=== PATIENT | female | born 1935 | race Caucasian/White ===

== ENCOUNTER 2018-01-30 17:11 | Observation (INO) ==
[2018-01-30 19:58] LABS: Basophils % 0.4 %; Eosinophils # 0.1 K/mcL (0.0-0.6); Eosinophils % 1.1 %; Hematocrit 44.9 % (35.3-44.9); Hemoglobin 14.8 g/dL (11.5-15.4); Immature Granulocytes % 0.5 % (0-4); Lymphocytes # 1.7 K/mcL (0.6-4.6); Mean Corpuscular Hemoglobin 33.5 pg (28.0-33.3); Mean Corpuscular Volume 101.6 fL (83.0-100.0); Mean Platelet Volume 9.2 fL (9.4-12.4); Monocytes # 0.6 K/mcL (0.0-1.3); Monocytes % 6.4 %; Neutrophils # 6.1 K/mcL (1.6-8.9); Platelet Count 214 K/mcL (140-400); Red Blood Count 4.42 M/mcL (3.82-4.97); Red Cell Distribution Width 15.9 % (11.5-14.5); Segmented Neutrophils % 71.6 %
[2018-01-30 20:14] LABS: Bilirubin,Urine Negative (Negative); Blood,Urine Trace-intact (Negative); Clarity,Urine Slightly Cloudy (Clear); Glucose,Urine (UA) Normal (Normal); Ketones,Urine Negative (Negative); Leukocyte Esterase,Urine Trace (Negative); Nitrite,Urine Negative (Negative); Protein,Urine Negative (Neg-Trace); Urobilinogen,Urine Normal (Normal)
[2018-01-30 20:14] LABS: Alanine Aminotransferase 12 Units/L (7-52); Albumin 4.4 g/dL (3.5-5.7); Albumin/Globulin Ratio 1.5 (1.1-2.2); Alkaline Phosphatase 97 Units/L (34-104); Aspartate Amino Transferase 18 Units/L (13-39); BUN/Creatinine Ratio 30 (6-26); Bilirubin,Total 1.1 mg/dL (0.3-1.0); Blood Urea Nitrogen 21 mg/dL (8-23); Calcium 9.8 mg/dL (8.6-10.3); Carbon Dioxide 30 mEq/L (23-29); Chloride 96 mEq/L (98-107); Globulin 2.9 g/dL (2.4-3.5); Glucose 86 mg/dL (70-105); Magnesium 2.3 mg/dL (1.6-2.6); Osmolality,Calculated 278 (280-300); Potassium 4.3 mEq/L (3.5-5.1); Sodium 133 mEq/L (136-145); Total Protein 7.3 g/dL (6.4-8.9); eGFR For Non-African Americans > 60 (> 60)
[2018-01-30 20:15] LABS: Color,Urine Yellow (Yellow)
[2018-01-30 20:17] LABS: RBC,Urine 0-3 per hpf (0-3); Squamous Epithelial Cell,Urine Few per lpf (None-Few)
[2018-01-30 20:18] LABS: Bacteria,Urine Few per hpf (None-Few); Hyaline Casts,Urine Few per lpf (None-Few)
[2018-01-30 20:28] LABS: Thyroid Stimulating Hormone 2.082 mcIU/mL (0.340-5.600)
[2018-01-30] MEDS ORDERED: 0.9 % Sodium Chloride 1,000 ML IVC SCH (21:00)
[2018-01-30] MEDS ORDERED: Naloxone 0.4 MG/ML INJ IVP PRN (21:37)
[2018-01-30] MEDS ORDERED: Ketorolac 30 MG/ML VIAL IVP ONE (22:15)
[2018-01-30] MEDS: 0.9 % Sodium Chloride 1,000 ML IVC SCH (22:30)
--- NOTE | 2018-01-30 23:20 | Emergency Department Note ---
Disposition Clinical Impression: Clavicle fracture Disposition: Admitted As Inpatient Condition: Fair Time of Disposition: 20:00 Fall HPI - General Chief Complaint: ED Fall Stated Complaint: cp, R shoulder pain. R leg pain, vaginal pain Time Seen by Provider: 01/30/18 18:10 Source: patient, family Limitations: no limitations Nursing Notes Reviewed: Yes Vital Signs Reviewed: Yes - History of Present Illness HPI Narrative: About 12 hours ago this morning Ms. sarah fell on her right side and is complaining of some right shoulder and hip pain. For the fall she was feeling somewhat dizzy as she was cleaning up after a pet. She denies any chest pain abdomen pain or palpitations before or during or after the fall. She could walk a little bit after the fall and her son assisted her very quickly after she f ell. She lives at his house. He put her on the couch and she had some difficulty with her right hip when she tried to get up again several hours later. She denies any numbness tingling or color change into her hand or fingers on the right. She does not believe she hit her head. She has full rec ollection of the event. Her son mentions that she is been feeling somewhat fatigued and at times confused recently and wonders if perhaps she has a urinary tract infection. No new medications. She is on methotrexate and full of gas at and omeprazole. They get 2 Percocet prescriptions per year but she has not taken this in some time. He is unsure of her other medications but does not believe she is on any blood thinners. She needs a walker to assist her ambulation at home. Pt Subjective Complaint: fall - Related Data Home Medications Medication Instructions Recorded Confirmed Unable To Obtain [Unable to Obtain] 09/26/16 01/30/18 Allergies Allergy/AdvReac Type Severity Reaction Status Date / Time latex Allergy Rash Verified 09/26/16 20:29 Penicillins Allergy See Verified 09/26/16 20:29 Comments Sulfa (Sulfonamide Allergy See Verified 09/26/16 20:29 Antibiotics) Comments Eyes: Denies: vision change ENT ED: Denies: dysphagia Cardiovascular: Denies: chest pain, palpitations Respiratory: Denies: dyspnea Gastrointestinal: Denies: nausea, vomiting, diarrhea Musculoskeletal: Reports: arthralgia Hematological/Lymphatic: Denies: easy bleeding, easy bruising Fall PMH - Past Medical History Medical history: Reports: GERD, hypertension, osteoporosis, RA Psychiatric history: Reports: no psych history JAPANESE PROFESSOR history: Reports: no JAPANESE PROFESSOR history - Social History Smoking Status: Never smoker Alcohol use: Reports: none Drug use: Reports: none Physical Exam - General Limitations: no limitations General appearance: alert, in no apparent distress - Head Head exam: atraumatic, normocephalic, normal inspection - Eye Eye exam: Present: normal appearance, PERRL, EOMI. Absent: periorbital swelling, periorbital tenderness - ENT ENT exam: other (Negative raccoon eyes negative Rodriguez sign) - Neck Neck exam: Present: normal inspection. Absent: tenderness - Chest Chest inspection: Present: normal inspection, symmetric chest wall rise - Respiratory Respiratory exam: Present: normal lung sounds bilaterally. Absent: respiratory distress, wheezes, stridor - Cardiovascular Cardiovascular exam: Present: regular rate, normal rhythm, normal heart sounds - Abdominal Exam Abdominal exam: Present: soft, Non-Tender - Extremities Exam Extremities exam: Present: normal inspection, other (Leg length equal). Absent: pedal edema - Expanded Upper Extremity Exam Shoulder exam: Present: tenderness, ecchymosis, tenderness over AC joint. Absent: full ROM Arm exam: Absent: tenderness Elbow exam: Present: normal inspection, full ROM. Absent: tenderness Hand exam: Present: normal inspection, other (Radial pulse +2 right. No sensory deficit right hand. Fingers are warm.) - Expanded Lower Extremity Exam Hip/Pelvis exam: Present: normal inspection, pelvis stable. Absent: tenderness, swelling, ecchymosis, deformity, crepitus, dislocation, erythema, shortening Upper leg exam: Present: normal inspection. Absent: tenderness - Neurological Exam Neurological exam: Present: alert - Psychiatric Psychiatric exam: Present: normal affect, normal mood - Skin Skin exam: Present: warm, dry Course Vital Signs Temperature 97.9 F 01/30/18 17:40 Pulse Rate 75 01/30/18 17:40 Respiratory Rate 16 01/30/18 17:40 Blood Pressure 167/73 01/30/18 17:40 O2 Sat by Pulse Oximetry 94 01/30/18 17:40 Temperature 97.4 F L 01/31/18 04:00 Pulse Rate 80 01/31/18 04:00 Respiratory Rate 17 01/31/18 04:00 Blood Pressure 133/70 01/31/18 04:00 O2 Sat by Pulse Oximetry 95 01/31/18 04:00 Oxygen Delivery Oxygen Delivery Room Air Fall - [facility] Narrative Medical decision making narrative: Status post fall. Clavicle fracture. She is dependent on a walker for ambulation. Obviously she will not be able to do this for the immediate future placing her at greater risk for further falls. Also she is nonambulatory because of hip pain even though there is no radiographic evidence for fracture or dislocation. She lives at home with her son who works full-time. It would be prudent to observe her here in the hospital to assess her mobility needs and perhaps even to consider increasing her level of care for the short-term. I spoke with the covering hospitalist and presented the case. He accepted admission. She appears well and was transferred to the floor in good condition. - Lab Data Lab results reviewed: Yes I reviewed the patient's lab results. Result diagrams: 01/30/18 19:50 01/31/18 05:45 Lab Results 01/30/18 01/30/18 01/30/18 Range/Units 19:50 19:50 19:50 WBC 8.5 (4.3-11.1) K/mcL RBC 4.42 (3.82-4.97) M/mcL Hgb 14.8 (11.5-15.4) g/dL Hct 44.9 (35.3-44.9) % MCV 101.6 H (83.0-100.0) fL MCH 33.5 H (28.0-33.3) pg MCHC 33.0 (31.6-35.5) g/dL RDW 15.9 H (11.5-14.5) % Plt Count 214 (140-400) K/mcL MPV 9.2 L (9.4-12.4) fL Immature Gran % 0.5 (0-4) % Seg Neutrophils % 71.6 % Lymphocytes % 20.0 % Monocytes % 6.4 % Eosinophils % 1.1 % Basophils % 0.4 % Neutrophils # 6.1 (1.6-8.9) K/mcL Lymphocytes # 1.7 (0.6-4.6) K/mcL Monocytes # 0.6 (0.0-1.3) K/mcL Eosinophils # 0.1 (0.0-0.6) K/mcL Basophils # 0.0 (0.0-0.2) K/mcL Sodium 133 L (136-145) mEq/L Potassium 4.3 (3.5-5.1) mEq/L Chloride 96 L (98-107) mEq/L Carbon Dioxide 30 H (23-29) mEq/L BUN 21 (8-23) mg/dL Creatinine 0.70 (0.60-1.20) mg/dL Est GFR ( Amer) > 60 (> 60) Est GFR (Non-Af Amer) > 60 (> 60) BUN/Creatinine Ratio 30 H (6-26) Glucose 86 (70-105) mg/dL Calculated Osmolality 278 L (280-300) Calcium 9.8 (8.6-10.3) mg/dL Magnesium 2.3 (1.6-2.6) mg/dL Total Bilirubin 1.1 H (0.3-1.0) mg/dL AST 18 (13-39) Units/L ALT 12 (7-52) Units/L Alkaline Phosphatase 97 (34-104) Units/L Serum Total Protein 7.3 (6.4-8.9) g/dL Albumin 4.4 (3.5-5.7) g/dL Globulin 2.9 (2.4-3.5) g/dL Albumin/Globulin Ratio 1.5 (1.1-2.2) TSH 2.082 (0.340-5.600) mcIU/mL Urine Color (Yellow) Urine Clarity (Clear) Urine pH (5.0-8.0) pH Units Ur Specific [place] (1.010-1.025) Urine Protein (Neg-Trace) mg/dL Urine Glucose (UA) (Normal) mg/dL Urine Ketones (Negative) mg/dL Urine Blood (Negative) Urine Nitrite (Negative) Urine Bilirubin (Negative) Urine Urobilinogen (Normal) mg/dL Ur Leukocyte Esterase (Negative) Urine Microscopic RBC (0-3) per hpf Urine Microscopic WBC (0-3) per hpf Ur Squamous Epith Cells (None-Few) per lpf Urine Bacteria (None-Few) per hpf Hyaline Casts (None-Few) per lpf Ur Culture Indicated? (NO) 01/30/18 Range/Units 20:09 WBC (4.3-11.1) K/mcL RBC (3.82-4.97) M/mcL Hgb (11.5-15.4) g/dL Hct (35.3-44.9) % MCV (83.0-100.0) fL MCH (28.0-33.3) pg MCHC (31.6-35.5) g/dL RDW (11.5-14.5) % Plt Count (140-400) K/mcL MPV (9.4-12.4) fL Immature Gran % (0-4) % Seg Neutrophils % % Lymphocytes % % Monocytes % % Eosinophils % % Basophils % % Neutrophils # (1.6-8.9) K/mcL Lymphocytes # (0.6-4.6) K/mcL Monocytes # (0.0-1.3) K/mcL Eosinophils # (0.0-0.6) K/mcL Basophils # (0.0-0.2) K/mcL Sodium (136-145) mEq/L Potassium (3.5-5.1) mEq/L Chloride (98-107) mEq/L Carbon Dioxide (23-29) mEq/L BUN (8-23) mg/dL Creatinine (0.60-1.20) mg/dL Est GFR ( Amer) (> 60) Est GFR (Non-Af Amer) (> 60) BUN/Creatinine Ratio (6-26) Glucose (70-105) mg/dL Calculated Osmolality (280-300) Calcium (8.6-10.3) mg/dL Magnesium (1.6-2.6) mg/dL Total Bilirubin (0.3-1.0) mg/dL AST (13-39) Units/L ALT (7-52) Units/L Alkaline Phosphatase (34-104) Units/L Serum Total Protein (6.4-8.9) g/dL Albumin (3.5-5.7) g/dL Globulin (2.4-3.5) g/dL Albumin/Globulin Ratio (1.1-2.2) TSH (0.340-5.600) mcIU/mL Urine Color Yellow (Yellow) Urine Clarity Slightly Cloudy A (Clear) Urine pH 5.0 (5.0-8.0) pH Units Ur Specific [place] 1.010 (1.010-1.025) Urine Protein Negative (Neg-Trace) mg/dL Urine Glucose (UA) Normal (Normal) mg/dL Urine Ketones Negative (Negative) mg/dL Urine Blood Trace-intact H (Negative) Urine Nitrite Negative (Negative) Urine Bilirubin Negative (Negative) Urine Urobilinogen Normal (Normal) mg/dL Ur Leukocyte Esterase Trace H (Negative) Urine Microscopic RBC 0-3 (0-3) per hpf Urine Microscopic WBC 3-5 H (0-3) per hpf Ur Squamous Epith Cells Few (None-Few) per lpf Urine Bacteria Few (None-Few) per hpf Hyaline Casts Few (None-Few) per lpf Ur Culture Indicated? YES A (NO) - Radiology Data Radiology results reviewed: Yes I reviewed the patient's radiology results. - EKG Data EKG attestation: Yes I reviewed and interpreted this EKG. EKG results narrative: EKG as interpreted by me normal sinus rhythm 63 bpm. There is some evidence in V5 V6 for left ventricular hypertrophy. Some T-wave flattening versus mild inversion in aVL otherwise no T-wave abnormalities. Normal axis. No ST elevations or depressions. No comparison available.
[2018-01-31] MEDS: 0.9 % Sodium Chloride 1,000 ML IVC SCH ×4 (01:46→22:39)
[2018-01-31] MEDS: Ketorolac 30 MG/ML VIAL IVP PRN ×2 (03:51→15:02)
[2018-01-31] MEDS: *HR* Enoxaparin 40 MG/0.4 ML SYRINGE SQ SCH (05:57)
[2018-01-31 06:13] LABS: BUN/Creatinine Ratio 28 (6-26); Blood Urea Nitrogen 20 mg/dL (8-23); Calcium 8.4 mg/dL (8.6-10.3); Carbon Dioxide 26 mEq/L (23-29); Chloride 104 mEq/L (98-107); Glucose 100 mg/dL (70-105); Osmolality,Calculated 283 (280-300); Potassium 3.8 mEq/L (3.5-5.1); Sodium 135 mEq/L (136-145); eGFR For Non-African Americans > 60 (> 60)
[2018-01-31] MEDS: Folic Acid 1 MG TABLET PO SCH (10:10)
--- NOTE | 2018-01-31 11:35 | Internal Med History&Physical ---
Addendum entered and electronically signed by Alex Candelario MD 01/31/18 15:36: I have personally performed a face to face evaluation on this patient. I have r eviewed and agree with the care plan. History and Exam by me shows: Patient is a frail, elderly patient with rheumatoid arthritis. She was in her usual state of health until last night when she was trying to clean up a urine puddle caused by her dog. She became presyncopal and then fell. She awoke without hitting her head but with severe right shoulder pain. She was otherwise without injury, no nodes time. She was brought to the emergency room and she was found to have right clavicle fracture. She had x-ray of her spine and pelvis as well as hip. This showed no problem with pelvis, hip, etc. She continues to have pelvic pain, today. I talked at length with the patient, son, and son's girlfriend. She does not want to go to the ECF but I was concerned that she needs to have 24 7 follow-up at home as she is not stable, can no longer use her wheeled walker because of her clavicle fracture, and may need rehabilitation for an extended period of time. H&P were reviewed with patient and her son. They are detailed in the H&P below. Son will try to encourage patient to go to the ECF for a month but she does not want to. I expressed my concern about her safety and told her that it was her right, I could not force her to go to an ECF. Social service states that she would require authorization for ECF and the need to know as soon as possible. She takes 10 fracture fixated pills, weekly, for rheumatoid arthritis. She is noted to have feet that turned almost black. However, she has tests which have been obtained by her primary doctor that show only a minor venous problem in that her circulation is otherwise okay. She has a couple of years of intermittent explosive diarrhea, at the end of meals. This is been evaluated by her family doctor and is she is to have an e valuation which is further but has not yet done this. (I presume this is a gastroenterological evaluation.) She has had no gallstones that she knows of or cholecystectomy. She has had a kidney stone. She frequently has abdominal pain at the end of her meals or with the explosive diarrhea. She has recently been incontinent of diarrhea on multiple occasions. She denies melena or hematochezia. Patient has no complaint of chest discomfort, dyspnea, orthopnea, breathing problems, palpitations, nausea or vomiting, constipation or diarrhea, other changes in bowel habits, heartburn, difficulty with urination, kidney problems or kidney stones, fevers chills or sweats, rash or itching, seizures, headache or lightheadedness, heat or cold intolerance, blood problems or anemia, or other new complaints, except as mentioned above. Review of systems is otherwise negative. Examination: (Except as mentioned above): General: In no apparent distress, alert and oriented 3. Head: Atraumatic and normocephalic. Eyes: Extraocular muscles are intact, pupils equal round and reactive to light and accommodation. Sclerae anicteric. Ears: External ears are normal to inspection and hearing is grossly normal. Nose: Patent without lesion noted. Mouth: No intraoral lesions seen. Dentition is unremarkable. Neck: Supple with trachea midline. There is no thyromegaly or adenopathy and carotids are 2+ without bruit heard. Respiratory: No use of accessory muscles. Lungs are clear throughout. Normal airflow. Cardiovascular: Regular rate and rhythm without murmur appreciated. Abdomen: Bowel sounds are normal. No hepatosplenomegaly masses or tenderness. Obese and therefore difficult to palpate deeply. This is true although she has a small, frail woman. Extremities: No cyanosis clubbing or edema. She has mild to moderate rheumatoid arthritis changes. No crippling deformities. Neurological: A and O 3. Cranial nerves II through XII are intact. No focal deficits and no abnormal movements or postures. Skin: Warm and non-diaphoretic with no lesions noted. Breasts, pelvic and rectal: Not examined. Original Note: Date of Encounter: 01/31/18 Time of Encounter: 11:32 Assessment and Plan (1) Fall Current visit: Yes Status: Acute Sustained a right clavicle fracture. PT and OT to eval and treat for generalize d weakness. Qualifiers: Encounter type: sequela Qualified Code(s): W19.XXXS - Unspecified fall, sequela (2) Clavicle fracture Current visit: Yes Status: Acute Continue sling. Follow up with ortho. Monitor pain. Controlled at this time. Qualifiers: Encounter type: sequela Clavicle location: lateral end Fracture type: closed Fracture alignment: nondisplaced Laterality: right Qualified Code(s): S42.034S - Nondisplaced fracture of lateral end of right clavicle, sequela Internal Medicine - H&P: HPI Admitted From: Emergency Dept Plans for Post Hospital Care: Home History of present illness: Ms. Ace is a 82 year old female presented to the emergency room yesterday after sustaining a fall yesterday morning at home. Patient fell on right side and sustained a right distal clavicle fracture. Patient is currently in a sling and denies pain at this time. Lives at home with son. Son states she has been having slight confusion and more fatigue over the past week or so. Urinalysis is pending. Will discontinue Khan catheter today. Did have large incontinent episode of diarrhea today. Patient denies fever, chills, nausea or vomiting. Denies shortness of breath or chest pain. Past Med Surg Social Fam HX - Past Medical History Medical history: GERD, hypertension, osteoporosis, RA Psychiatric history: no psych history - Past Surgical History Additional surgical history: Right shoulder torn rotator cuff,left knee,right hip - Social History Smoking Status: Never smoker Smokeless Tobacco Status: No Alcohol use: none Drug use: none Internal Medicine - H&P: Meds Unable To Obtain [Unable to Obtain] 09/26/16 [History] Allergy/AdvReac Type Severity Reaction Status Date / Time latex Allergy Rash Verified 09/26/16 20:29 Penicillins Allergy See Verified 09/26/16 20:29 Comments Sulfa (Sulfonamide Allergy See Verified 09/26/16 20:29 Antibiotics) Comments All Systems PM: A 10-system review of systems was performed and is negative for pertinent findings except as documented above in the HPI. - Constitutional Constitutional: no chills, no fever(s), no night sweats - EENT Eyes: no change in vision, no discharge, no pain, no photophobia Ears: no ear discharge, no ear pain, no tinnitus Nose, mouth and throat: no dysphagia, no nasal discharge, no neck pain, no sore throat - Cardiovascular Cardiovascular ROS IM: no chest pain, no diaphoresis, no dyspnea, no light headedness, no palpitations, no syncope - Respiratory Respiratory: no cough, no dyspnea, no wheezing, no excessive phlegm production - Gastrointestinal Gastrointestinal: no abdominal pain, no diarrhea, no hematemesis, no h ematochezia, no melena, no nausea, no vomiting - Genitourinary Genitourinary: no change in urinary stream, no dysuria, no flank pain, no hematuria - Musculoskeletal Musculoskeletal ROS IM: no numbness, no tingling - Integumentary Integumentary IM: no rash, no unusual bruising - Neurological Neurological ROS: no confusion, no convulsions, no focal weakness, no numbness, no tingling, no tremor(s) - Hematologic/Lymphatic Hematologic/Lymphatic: no easy bruising - Constitutional Vitals: Temp Pulse Resp BP Pulse Ox 97.7 F 69 16 106/66 95 01/31/18 06:30 01/31/18 06:30 01/31/18 06:30 01/31/18 06:30 01/31/18 06:30 General appearance: Present: A&O X 3, pleasant, no acute distress, answers questions appropriately - Head Head exam: Present: atraumatic, normocephalic - Eye Eye exam: Present: PERRL, conjuntiva pink, sclera anicteric Pupils: Present: PERRL - Neck Neck exam general surgery: Present: supple, trachea midline. Absent: lymphadenopathy - Respiratory Respiratory exam: Present: CTAB. Absent: accessory muscle use, rales, rhonchi, wheezes - Cardiovascular Cardiovascular exam: Present: RRR, +S1, +S2. Absent: diastolic murmur, gallop, rubs, systolic murmur - GI/Abdominal GI/Abdominal exam: Present: normal bowel sounds, soft, no peritoneal signs. Absent: distended, tenderness - Extremities Exam Extremities exam: Present: warm, radial pulses palpable and symmetrical. Absent: calf tenderness, cyanotic, pedal edema Additional comments: Right arm in sling - Neurological Exam Neurological exam: Present: CN II-XII intact, oriented X3, no focal deficits. Absent: pronater drift, facial droop, speech deficit - Skin Skin exam: Present: dry, intact Internal Med - H&P Results - Labs CBC & Chem 7: 01/30/18 19:50 01/31/18 05:45 Labs: Short CBC 01/30/18 Range/Units 19:50 WBC 8.5 (4.3-11.1) K/mcL Hgb 14.8 (11.5-15.4) g/dL Hct 44.9 (35.3-44.9) % Plt Count 214 (140-400) K/mcL Neutrophils # 6.1 (1.6-8.9) K/mcL BMP 01/30/18 01/31/18 19:50 05:45 Sodium 133 L 135 L Potassium 4.3 3.8 Chloride 96 L 104 Carbon Dioxide 30 H 26 BUN 21 20 Creatinine 0.70 0.72 Glucose 86 100 Calcium 9.8 8.4 L Liver Function 01/30/18 Range/Units 19:50 Total Bilirubin 1.1 H (0.3-1.0) mg/dL AST 18 (13-39) Units/L ALT 12 (7-52) Units/L Alkaline Phosphatase 97 (34-104) Units/L Albumin 4.4 (3.5-5.7) g/dL Urine 01/30/18 Range/Units 20:09 Urine Color Yellow (Yellow) Urine Clarity Slightly Cloudy A (Clear) Urine pH 5.0 (5.0-8.0) pH Units Ur Specific [place] 1.010 (1.010-1.025) Urine Protein Negative (Neg-Trace) mg/dL Urine Glucose (UA) Normal (Normal) mg/dL - Impressions ITS Impressions Hip X-Ray 01/30/18 17:53 IMPRESSION: Right hip: Status post right hip hemiarthroplasty. No acute abnormality detected. Right shoulder: Comminuted, displaced distal clavicle fracture. Nodular opacity within the right lung, incompletely evaluated. Further evaluation with a dedicated PA and lateral chest radiograph is recommended. Chest CT may ultimately be necessary. D/ / Cristopher Edward MD / Cristopher Edward MD Interpreting Provider: Cristopher Edward MD Shoulder X-Ray 01/30/18 17:53 IMPRESSION: Right hip: Status post right hip hemiarthroplasty. No acute abnormality detected. Right shoulder: Comminuted, displaced distal clavicle fracture. Nodular opacity within the right lung, incompletely evaluated. Further evaluation with a dedicated PA and lateral chest radiograph is recommended. Chest CT may ultimately be necessary. D/ / Cristopher Edward MD / Cristopher Edward MD Interpreting Provider: Cristopher Edward MD Head CT 01/30/18 19:17 IMPRESSION: 1. No acute intracranial abnormality. 2. 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 3. If there is clinical concern for acute ischemia, MRI would be the more sensitive modality. D/ / Indio Tyler / Indio Tyler Interpreting Provider: Indio Tyler Chest X-Ray 01/30/18 19:19 IMPRESSION: Redemonstration of the distal right clavicle fracture. Otherwise negative chest radiograph. D/ / Cristopher Edward MD / Cristopher dEward MD Interpreting Provider: Cristopher Edward MD
--- NOTE | 2018-01-31 21:12 | Electrocardiograph Report ---
[place] [id number] Test Date: 2018-01-30 Pat Name: Mindy Ace Department: 2000 Room: 117 Gender: F Mechanical Field Engineer: : [id number] Requested By: Jah Garcia Order Number: [id number] Reading MD: Carlos Taylor Measurements Intervals [place] Rate: 63 P: 76 AL: 166 QRS: 15 QRSD: 85 T: 65 QT: 404 QTc: 411 Interpretive Statements SINUS RHYTHM LEFT VENTRICULAR HYPERTROPHY AND ST-T CHANGE Electronically Signed On 01-31-2018 21:11:06 EST by Carlos Taylor
[2018-01-31] MEDS ORDERED: *HR* Enoxaparin 40 MG/0.4 ML SYRINGE SQ SCH (21:35)
[2018-02-01] MEDS: *HR* Enoxaparin 40 MG/0.4 ML SYRINGE SQ SCH (06:13)
[2018-02-01] MEDS: Folic Acid 1 MG TABLET PO SCH (08:51)
[2018-02-01] MEDS: 0.9 % Sodium Chloride 1,000 ML IVC SCH (09:08)
[2018-02-01] MEDS: *HR* OxyCODONE/APAP 5/325 TABLET PO PRN ×3 (09:45→22:53)
--- NOTE | 2018-02-01 10:11 | Internal Med Progress Note ---
Addendum entered and electronically signed by Alex Candelario MD 02/01/18 10:28: I have personally performed a face to face evaluation on this patient. I have r eviewed and agree with the care plan. History and Exam by me shows: As noted, spoke at length with patient and son yesterday about risks and 24-hour care, at home. Son agrees that she should go to [facility] but patient is telling me she is waiting to go home, this morning. enrollment services vice president investigating insurance coverage of [facility]. Patient has minimal soreness in her right shoulder but is otherwise doing well. No bowel or bladder problems. Discussed care with other providers and/or nursing. Patient has no complaint of chest discomfort, dyspnea, orthopnea, palpitations, nausea or vomiting, constipation or diarrhea, other changes in bowel habits, difficulty with urination, rash or itching, or other new complaints, except as mentioned above. Review of systems is otherwise negative. Examination: (Except as mentioned above): General: In no apparent distress. Alert and oriented 3. Nondiaphoretic. Wearing sling and swath, as before. Head: Atraumatic and normocephalic. Respiratory: No use of accessory muscles. Lungs are clear throughout. Normal airflow. Cardiovascular: Regular rate and rhythm without murmur appreciated. Abdomen: Bowel sounds are normal. No hepatosplenomegaly mass or tenderness appreciated. Obese and therefore difficult to palpate deeply. I actually think that she is not very obese but her kyphosis makes her abdomen be conformed this way. Patient is examined upright in chair and this also limits exam. Extremities: No cyanosis clubbing or edema. Skin: Warm and non-diaphoretic with no new lesions noted We have asked nursing to evaluate for orthopedic referral and outpatient management for possible clavicle brace/strap but because of her rather pron ounced kyphosis, this may not be appropriate.. Original Note: Date of Encounter: 02/01/18 Time of Encounter: 10:09 - Assessment and plan (1) Fall Current Visit: Yes Status: Acute Assessment and plan: assist with ADL's. Qualifiers: Encounter type: sequela Qualified Code(s): W19.XXXS - Unspecified fall, sequela (2) Clavicle fracture Current Visit: Yes Status: Acute Assessment and plan: pain controlled with current medicaiton. continue right arm in sling. Qualifiers: Encounter type: sequela Clavicle location: lateral end Fracture type: closed Fracture alignment: nondisplaced Laterality: right Qualified Code(s): S42.034S - Nondisplaced fracture of lateral end of right clavicle, sequela - Time Spent With Patient less than 15 minutes - Subjective Interval history: currently sitting up in chair. states not sleeping well, this is not new and has been going on prior to admit. states pain in left arm and shoulder area is controlled. currently wearing sling. discussed ECF placement. denies fever, chills, NVD today. maintaining appetite and hydration. - Constitutional Vitals: Temp Pulse Resp BP Pulse Ox 97.7 F 72 18 137/75 96 02/01/18 04:43 02/01/18 04:43 02/01/18 04:43 02/01/18 04:43 02/01/18 04:43 General appearance: Present: A&O X 3, pleasant, no acute distress, answers questions appropriately - Head Head exam: Present: atraumatic, normocephalic - Eye Eye exam: Present: PERRL, conjuntiva pink, sclera anicteric Pupils: Present: PERRL - Neck Neck exam general surgery: Present: supple, trachea midline. Absent: lymphadenopathy - Respiratory Respiratory exam: Present: CTAB. Absent: accessory muscle use, rales, rhonchi, wheezes - Cardiovascular Cardiovascular exam: Present: RRR, +S1, +S2. Absent: diastolic murmur, gallop, rubs, systolic murmur - GI/Abdominal GI/Abdominal exam: Present: normal bowel sounds, soft, no peritoneal signs. Absent: distended, tenderness - Extremities Exam Extremities exam: Present: warm, radial pulses palpable and symmetrical. Absent: calf tenderness, cyanotic, pedal edema Additional comments: right arm in sling. - Neurological Exam Neurological exam: Present: CN II-XII intact, oriented X3, no focal deficits. Absent: pronater drift, facial droop, speech deficit - Skin Skin exam: Present: dry, intact Internal Medicine: Result - Labs CBC & Chem 7: 01/30/18 19:50 01/31/18 05:45 Consult Discharge Plan - Plan Referrals: Piero Daley DO [Primary Care Provider] -
[2018-02-02] MEDS: *HR* Enoxaparin 40 MG/0.4 ML SYRINGE SQ SCH (04:07)
[2018-02-02] MEDS: Folic Acid 1 MG TABLET PO SCH (08:38)
[2018-02-02] MEDS: *HR* OxyCODONE/APAP 5/325 TABLET PO PRN (08:38)
--- NOTE | 2018-02-02 11:04 | Discharge Summary ---
Addendum entered and electronically signed by Alex Candelario MD 02/03/18 11:46: I have personally performed a face to face evaluation on this patient. I have r eviewed and agree with the care plan. History and Exam by me shows: The patient was evaluated by me yesterday but the note was not complete. This documentation is being completed today for that reason. Patient was here for several days because of disposition decisions by the family, especially the son. The recommendation was for 24 7 care (which his son felt he was unable to provide) or ECF placement. For insurance and other reasons, this was not to be done, per son. The patient has had incontinence of bowel and as noted, she has had this problem for anywhere from 6 or 7 months to as long as 2 years and it has been evaluated by her family physician. Because she was to be here for only a day, no workup was undertaken here. Also, we do not have a classifier or evaluation that is possible. I am told by nursing that the patient was stable and not requiring much pain medicine. However, the son was upset that the patient was to be seen here by an orthopedist (which we do not have one staff) and was under the impression that this would be arranged while the patient was here. I am told variably that the staff put him at understanding and agrees, before her discharge. The patient stated that her shoulder pain was "sore," but easily tolerable. She was moving bowels and bladder per her baseline and well. Discussed care with other providers and/or nursing. Patient has no complaint of chest discomfort, dyspnea, orthopnea, palpitations, nausea or vomiting, constipation or diarrhea, other changes in bowel habits, difficulty with urination, rash or itching, or other new complaints, except as mentioned above. Review of systems is otherwise negative. Examination: (Except as mentioned above): General: In no apparent distress. Alert and oriented 3. Nondiaphoretic. She is wearing a right arm sling, as before. Head: Atraumatic and normocephalic. Respiratory: No use of accessory muscles. Lungs are clear throughout. Normal airflow. Cardiovascular: Regular rate and rhythm without murmur appreciated. Abdomen: Bowel sounds are normal. No hepatosplenomegaly mass or tenderness appreciated. Obese and therefore difficult to palpate deeply. Extremities: No cyanosis clubbing or edema. Skin: Warm and non-diaphoretic with no new lesions noted. Original Note: Date of Encounter: 02/02/18 Time of Encounter: 11:01 - Discharge Diagnosis (1) Clavicle fracture Priority: Primary Status: Acute Comments: Patient had experienced a mechanical fall at home resulting in a right clavicle fracture. Patient continues to show moderate amount of ecchymosis to right shoulder, but no deformity or open wound noted. Patient's right arm remains in sling with distal cardiovascular checks within normal limits. Patient continues to be nonweightbearing with right arm. Patient states that her pain has been well-controlled with current pain medications. Patient continues to have unsteady gait requiring a hemiwalker to be used during ambulation. Will continue f/u with PCP and Orthopedic surgeon after DC to home. Patient has an appointment set up with Dr. Guadarrama, orthopedic surgeon locally in the next few weeks. Patient's son states perverts of having patient seen by family physician who has a brother that is an orthopedic surgeon and states that he feels more comfortable with his mother following with his own orthopedic surgeon that he is familiar with. Patient's son states that she has an appointment set for next with her PCP. Patient being discharged with prescription with Percocet Qualifiers: Encounter type: sequela Clavicle location: lateral end Fracture type: closed Fracture alignment: nondisplaced Laterality: right Qualified Code(s): S42.034S - Nondisplaced fracture of lateral end of right clavicle, sequela (2) Fall Priority: Secondary Status: Acute Comments: Patient experienced a mechanical fall at home, resulting in a right clavicle Fx. Patient continues with unsteady gait, requiring a hemiwalker for balance during ambulation. No other obvious injuries or deformities noted on exam. Patient states that she continues to have pain to her right hip, which showed no obvious fracture on x-ray. Will f/u with PCP. Patient is continue physical therapy through home health services. Qualifiers: Encounter type: sequela Qualified Code(s): W19.XXXS - Unspecified fall, sequela (3) Rheumatoid arthritis Priority: Secondary Status: Chronic Comments: No acute issues during her stay at this facility. Patient is continue with home medications after discharge and follow-up with PCP. Qualifiers: Rheumatoid arthritis location: unspecified site Rheumatoid factor presence: unspecified presence Qualified Code(s): M06.9 - Rheumatoid arthritis, unspecified (4) HTN (hypertension) Priority: Secondary Status: Chronic Comments: Vital signs have remained stable during her stay at this facility. Patient will continue with current medications. Qualifiers: Hypertension type: essential hypertension Qualified Code(s): I10 - Essential (primary) hypertension (5) Neuropathy Priority: Secondary Status: Chronic Comments: Patient with a history of neuropathy and takes Lyrica at home. Lyrica was restarted and patient given a prescription for Lyrica 75 mg twice a day. Patient is to follow-up with PCP after discharge (6) Diarrhea Priority: Secondary Status: Chronic Comments: Patient with a history of loose stools over the past 2 years per medical records. Patient has had no BM in the last 24 hours. Per medical records patient has been evaluated by her PCP. Patient has an appointment to see PCP next and can be reevaluated at that time. Qualifiers: Diarrhea type: unspecified type Qualified Code(s): R19.7 - Diarrhea, unspecified Hospital course: Ms. Ace is a 82 year old female, who experienced a mechanical fall at home and presented to the emergency department with complaints of right hip pain and right shoulder pain. Patient was evaluated in the emergency department and had an x-ray that showed a right displaced clavicle fracture. Patient was placed in a immobilizing sling and kept nonweightbearing. Patient was admitted to the medical floor and evaluated for further rehabilitation. Patient was seen this morning and stated that her pain has been well controlled with current pain medications. Patient to complain of pain during palpation of right shoulder with showed moderate amount of ecchymosis but no deformity. Patient continued to complain of pain to the right hip but on x-ray showed no acute fracture. Patient continues to have difficulty ambulating due to pain to her right hip. Patient is being issued a hemiwalker for ambulation to reduce her risk of fall. Patient also complained of a history of loose stools, but per medical records this issue has shown to be chronic over the past several years. As of day of discharge patient showed no BM over the past 24 hours. Patient's son states that she has a history of neuropathy and takes Percocet at home. Patient was restarted on her Lyrica and given a dose while at this facility. Patient was discharged with a prescription for Lyrica. Patient was being evaluated for continued rehabilitation due to deconditioning. Due to insurance patient is not L of for in-house admission and other options such as therapy at SNF versus home health were evaluated, but limited due to patient's coverage area on her insurance. No point was made with Dr. Guadarrama, orthopedic surgeon for consult to evaluate her fracture. Patient's son states that he prefers to take his mother to her family physician, who has a brother that is an orthopedic surgeon and will have her evaluated by him. Patient states he feels more comfortable with his orthopedic surgeon following his mother. Patient is being discharged to home with home health nursing and physical therapy. Patient was given a prescription for Percocet and Lyrica at time of discharge. Discharge discussed with: patient, family Time spent discussing smoking cessation with patient: 3 to 10 minutes - Time Spent with Patient Total time spent providing and/or coordinating discharge services: Less than 30 minutes - Discharge Medications Home Medications: Unable To Obtain [Unable to Obtain] 09/26/16 [History] Allergies/Adverse Reactions: Allergy/AdvReac Type Severity Reaction Status Date / Time latex Allergy Rash Verified 09/26/16 20:29 Penicillins Allergy See Verified 09/26/16 20:29 Comments Sulfa (Sulfonamide Allergy See Verified 09/26/16 20:29 Antibiotics) Comments Date of admission: 01/30/18 21:58 Primary care physician: Piero Daley Consults: 01/31/18 09:35 Consult to Physical Therapy [CONS] Routine Comment: Evaluate, develop and implement POC Reason for Consult: weakness Does patient have active BEDREST order?: No Is patient medically & hemodynamically stable?: Yes Patient assessed for mobility or mobilized this visit?: No OT [Consult to Occupational Therapy] [CONS] Routine Comment: Evaluate, develop and implement POC Reason for Consult: weakness Does patient have active BEDREST order?: No Is patient medically & hemodynamically stable?: Yes Patient assessed for mobility or mobilized this visit?: No Discharging clinician: Alex Candelario - Constitutional Vitals: Temp Pulse Resp BP Pulse Ox 97.5 F L 104 18 148/78 95 02/02/18 08:00 02/02/18 08:00 02/02/18 08:00 02/02/18 08:00 02/02/18 08:00 General appearance: Present: A&O X 3, pleasant, no acute distress, answers questions appropriately - Head Head exam: Present: atraumatic, normocephalic - Eye Eye exam: Present: PERRL, conjuntiva pink, sclera anicteric Pupils: Present: PERRL - Neck Neck exam general surgery: Present: supple, trachea midline. Absent: lymphadenopathy - Respiratory Respiratory exam: Present: CTAB. Absent: accessory muscle use, rales, rhonchi, wheezes - Cardiovascular Cardiovascular exam: Present: RRR, +S1, +S2. Absent: diastolic murmur, gallop, rubs, systolic murmur - GI/Abdominal GI/Abdominal exam: Present: normal bowel sounds, soft, no peritoneal signs. Absent: distended, tenderness Additional comments: Patient with history of loose stools but no acute issues noted on examination of abdomen. - Extremities Exam Extremities exam: Present: normal capillary refill, warm, radial pulses palpable and symmetrical. Absent: calf tenderness, cyanotic, pedal edema Additional comments: Patient with moderate amount of ecchymosis to right shoulder. No deformity noted. Right arm remains in a sling with nonweightbearing - Neurological Exam Neurological exam: Present: CN II-XII intact, oriented X3, no focal deficits. Absent: pronater drift, facial droop, speech deficit - Skin Skin exam: Present: dry, intact - Patient Status Disposition: Home Health Service Condition: Good Functional capacity at discharge: uses cane/walker Overall status at discharge: patient is progressing back to baseline - Discharge Instructions Follow Up With: Piero Daley DO [Primary Care Provider] - Forms: ED Satisfaction Letter - Diet and Activity Activity: ambulate only with your walker, as per physical therapy Diet: regular diet
--- NOTE | 2018-02-02 15:04 | Physician Discharge Referral ---
Addendum entered and electronically signed by Alex Candelario MD 02/03/18 11:46: Original Note: Home Health/Hosp Referral Info Transfer to: Home Health Provider in Charge Post Discharge: PCP - Diagnosis (1) Clavicle fracture Priority: Primary Status: Acute (2) Fall Priority: Secondary Status: Acute (3) Rheumatoid arthritis Priority: Secondary Status: Chronic (4) HTN (hypertension) Priority: Secondary Status: Chronic (5) Neuropathy Priority: Secondary Status: Chronic (6) Diarrhea Priority: Secondary Status: Chronic - Respiratory Orders Smoking Cessation: Smoking cessation has been advised. For more information, call the [place] Tobacco Quit Line at 2-116-AQGB-NOW. - Diet/Nutrition Diet/Nutrition Orders: Regular - Activity Activity Orders: Up ad william, Walker (right arm nonweightbearing) - Services Needed Following services are medically necessary services: Nursing, Physical Therapy (right arm is nonweightbearing with arm to remain in sling) - Transfer Medications Home Medications: Unable To Obtain [Unable to Obtain] 09/26/16 [History] Allergies/Adverse Reactions: Allergy/AdvReac Type Severity Reaction Status Date / Time latex Allergy Rash Verified 09/26/16 20:29 Penicillins Allergy See Verified 09/26/16 20:29 Comments Sulfa (Sulfonamide Allergy See Verified 09/26/16 20:29 Antibiotics) Comments Certification: Further, I certify that my clinical findings support that this patient is homebound (i.e. absences from home require considerable and taxing effort and are for medical reasons or anabaptism services or infrequently or short duration when for other reasons) because: Homebound Reason: Leaving home requires considerable and taxing effort due to condition Attestation: My signature below is to certify that this patient is under my care and that I, or nurse practitioner, or a physician's university administrative assistant working with me, has a [id number] encounter with this patient.
[2018-02-02] MEDS ORDERED: Pregabalin 75 MG CAPSULE PO SCH (15:56)
[2018-02-02 16:53] VITALS: BP 161/79
== END 2018-02-02 18:56 | disposition home health service (06) ==
LOC: EMEROOGRE 17:11 → INPGRE 17:11